=== PATIENT | male | born 1955 | race Hispanic/Latino ===

== ENCOUNTER 2019-08-16 10:35 | Observation (INO) | payer MEDICARE, BC ==
[2019-08-16] MEDS ORDERED: Aspirin Chewable 81 MG TAB ONE (10:49)
[2019-08-16 11:09] LABS: #Basophils 0.1 thou/uL (0.0-0.2); #Eosinphils 0.4 thou/uL (0.0-0.7); #Lymphocytes 1.5 thou/uL (1.20-3.40); #Monocytes 0.4 thou/uL (0.11-0.59); #Neutrophils 5.8 thou/uL (1.40-6.50); %Basophils 1.4 % (0.0-1.0); %Eosinophils 4.7 % (0.0-10.0); %Neutrophils 70.9 % (42.0-75.0); Hemoglobin 14.3 g/dL (14.0-18.0); Mean Corpuscular HGB CONC 34.3 g/dL (32.0-36.0); Mean Corpuscular Hemoglobin 30.5 pg (27.0-31.0); Mean Corpuscular Volume 88.7 fL (78.0-98.0); Mean Platelet Volume 9.2 fL (7.4-10.4); Platelet Count 189 thou/uL (130-400); White Blood Cell (WBC) Count 8.2 thou/uL (4.8-10.8)
[2019-08-16 11:21] LABS: ALT (SGPT) 24 U/L (8-55); AST (SGOT) 46 U/L (5-34); Albumin 4.2 g/dL (3.4-4.8); Alkaline Phosphatase 99 U/L (40-110); Anion Gap 12 mmol/L (10-20); BUN (Urea Nitrogen) 19 mg/dL (8.4-25.7); Bilirubin, Total 0.7 mg/dL (0.2-1.2); Calc. Creatinine Clearance 0 mL/min (70-130); Calcium 9.6 mg/dL (7.8-10.44); Carbon Dioxide 28 mmol/L (23-31); Chloride 103 mmol/L (98-107); Estimated GFR-MDRD 62; Globulin 3.3 g/dL (2.4-3.5); Glucose 247 mg/dL (80-115); Lipase 30 U/L (8-78); Potassium 4.8 mmol/L (3.5-5.1); Protein, Total 7.5 g/dL (5.8-8.1); Sodium 138 mmol/L (136-145)
--- NOTE | 2019-08-16 13:24 | RAD ---
FRONTAL RADIOGRAPH CHEST: Date: 08/16/19 COMPARISON: 03/22/14. HISTORY: Shoulder pain. FINDINGS: There is marked elevation of the right hemidiaphragm, limiting assessment of the right lung base. Hea rt and mediastinal contours are unremarkable. Left lung is clear. No pneumothorax. IMPRESSION: Marked elevation of the right hemidiaphragm. No lobar consolidation. Right base is poorly assessed. POS: OFF
--- NOTE | 2019-08-16 14:16 | CT ---
CT CERVICAL SPINE: DATE: 08/16/2019. COMPARISON: None. HISTORY: Left arm pain with numbness and tingling, radiculopathy. TECHNIQUE: Axial CT imaging at 2.5 mm intervals through the cervical spine with coronal and sagittal reformatted imaging. FINDINGS: Evaluation for central canal and/or neural foraminal stenosis is limited on routine CT. Craniocervic al junction appears intact. There is moderate degenerative change at the atlantoaxial interspace. T he C1 ring, occipital condyles, C1-2 articulation, craniocervical junction, and cervicothoracic junct ion demonstrate no acute findings. No prevertebral soft tissue swelling. No significant anterolisth esis or retrolisthesis. C2-3: Bilateral facet and uncovertebral osteophyte formation, left greater than right. Moderate lef t and mild right neural foraminal stenosis suspected. At least mild central canal stenosis. C3-4: Intervertebral disk device present. Bilateral facet and uncovertebral osteophyte formation no elida. Moderate bilateral neural foraminal stenosis, left greater than right. Mild/moderate central c anal stenosis. C4-5: Mild disk bulge. Moderate central canal stenosis. Disk space narrowing with degenerative end plate change and anterior osteophyte formation. Bilateral facet and uncovertebral osteophyte format ion with moderate/severe bilateral neural foraminal stenosis. C5-6: Disk space narrowing with degenerative end plate change and anterior osteophyte formation. Bi lateral uncovertebral osteophyte with moderate/severe bilateral neural foraminal stenosis and moderat e central canal stenosis. C6-7: Bilateral uncovertebral osteophyte formation with moderate/severe bilateral neural foraminal s tenosis. Disk space narrowing and anterior osteophyte formation with moderate central canal stenosis . C7-T1: No osseous cause of significant central canal or neural foraminal stenosis. No discrete lytic or blastic bone lesion. No acute fracture or evidence of dislocation. There is scattered atherosclerotic calcification of the carotid vasculature bilaterally. IMPRESSION: Multilevel degenerative change within the cervical spine. Evaluation for central canal and/or neural foraminal stenosis is limited on CT. No acute osseous abnormality. If radicular symptoms persist, followup cervical spine MRI is suggested. POS: OFF
[2019-08-16 14:37] LABS: Troponin I Less than 0.010 ng/mL (< 0.028)
[2019-08-16] MEDS ORDERED: Ibuprofen 800 MG TAB PO PRN (15:49)
--- NOTE | 2019-08-16 18:49 | HP ---
PRIMARY CARE PHYSICIAN: Dr. Marco Gonzalez at [facility]. CHIEF COMPLAINT: Left arm numbness and weakness times days, neck pain times days, chest tightness times day. HISTORY OF PRESENT ILLNESS: This is a 64-year-old male with past medical history of remote anterior cervical diskectomy with fusion by Dr. Vishal Suarez; hypertension; dyslipidemia; type 2 diabetes mellitus, insulin-dependent; hypothyroidism; who presents to [facility] ER for a 3 day history of left arm weakness and inability to lift arm above shoulder level associated with pain in his left posterior neck and numbness from the left thumb extending proximally to the mid forearm as well as associated complaints of chest tightness prompting concern and further ER evaluation. The patient denies any trauma or any related injury. He returned from vacation to [place] for the past 1 week and was at his baseline level. He notes history of lumbar laminectomy and notes baseline pain in the lower back. He has tried oral ibuprofen 800 mg tablets without any relief. He notes good handgrip in left hand, but notes concerns of decreased strength and chest tightness prompting further concern for evaluation. Of note, he reports fall 1-1/2 months ago with injury to right arm that has improved with passive range of motion. At baseline, he works out on a daily basis, but not has not worked on the past week due to vacation. In ER, initial blood pressure was hypertensive 188/94 with repeat blood pressure normotensive. Remainder of vitals was unremarkable. Chemistries and cardiac biomarkers and 12-lead EKG were reportedly unremarkable. The patient was administrated full dose of oral aspirin 325 mg and nitroglycerin topical ointment and then admitted for further observation for ER concerns of atypical chest pain. At bedside, the patient accompanied by spouse. He reports his symptoms have not really improved. He denies any complaints of headache, vision changes, speech difficulty, drooling, or motor or sensory symptoms on any other extremities. He notes some pain extending from elbow to the left shoulder with attempts to raise arm and thinks similar attempts may have caused chest discomfort. Most recent stress testing was in January 2013 with negative Lexiscan. PAST MEDICAL HISTORY: Hypertension; dyslipidemia; type 2 diabetes mellitus, insulin dependent; hypothyroidism; prior ACDF by Dr. Vishal Suarez. PAST SURGICAL HISTORY: ACDF 15 to 20 years [address] done [address] Dr[address] Vishal Suarez, lumbar laminectomy, vasectomy, bilateral total knee arthroplasty with revision to right side. SOCIAL HISTORY: The patient admits to social alcohol intake. He denies any tobacco use. He is baseline ambulatory, works out. He is . ALLERGIES: NONE REPORTED. MEDICATIONS: Home medications will be reviewed as per admission medication reconciliation. REVIEW OF SYSTEMS: Pertinent positives as noted in HPI. Remainder of review of systems negative. PHYSICAL EXAMINATION: VITAL SIGNS: Blood pressure initially 188/94, currently 124/83; pulse 72, respirations 18; oxygen saturation 98%, temperature 98.1. GENERAL APPEARANCE: This is an elderly male, who is awake, alert, oriented, coherent, lucid, not in obvious distress, speaking in full complete coherent sentences. HEENT: Normocephalic and atraumatic. No facial asymmetry. Pupils are equally round. Extraocular muscles are intact. NECK: Supple. There is posterior neck tenderness on the left side. CARDIOVASCULAR: S1 and S2. Regular rate and rhythm. No harsh murmurs. There is reproducible left anterior chest wall tenderness. LUNGS: Bilateral equal air entry on posterior auscultation. Nonlabored respiration. No wheezing or rales. ABDOMEN: Soft, nontender, and nondistended. EXTREMITIES: No edema, cyanosis, or deformities. MUSCULOSKELETAL: Evaluation of full passive range of motion of right upper extremity and bilateral lower extremities. Decreased passive range of motion of the left arm due to reported weakness. NEUROLOGIC: No facial asymmetry. Symmetrical smiles. Symmetrical muscle with facial expression. No sensory deficit of face noted. Decreased passive range of motion of 4+ in left arm with effort limited due to weakness. There is diminished sensation extending from the thumb to the mid forearm. Bilateral handgrip intact. No motor or sensory deficits of lower extremities are appreciated. Gait was not assessed. LABORATORY DATA: WBC 8.2, H and H of 14.3/41.7, and platelets 189. Chemistry; sodium 130, potassium 4.8, chloride 102, bicarb 28, glucose 247, BUN and creatinine 19/1.18. GFR 42. Troponin I negative. EKG reportedly negative for ischemic or infarction changes. IMAGING: One-view chest x-ray on 08/16/2019 reveals marked elevation of hemidiaphragm with no overt consolidation and poor assessment of right base. CT of cervical spine on 08/16/2019 without contrast reveals multilevel degenerative changes within cervical spine with limited evaluation for central canal and neuroforaminal stenosis. ASSESSMENT: 1. Left arm pain and weakness and weakness of unspecified etiology. The patient will be admitted as observation status, placed on telemetry monitoring. Certainly, atypical chest pain symptoms in this patient with multiple CAD risk factors and we will obtain serial cardiac biomarkers to exclude acute coronary syndrome. Furthermore, noting the patient's unexplained motor weakness in left arm with associated numbness, we will obtain MRI of brain without contrast as well as MRI cervical spine without contrast to exclude any primary central nervous system or peripheral central nervous system or radicular etiologies. Noted prior remote history of anterior cervical diskectomy with fusion. The patient has received aspirin in the ER empirically. We will consult PT and OT for further evaluation. We will monitor for pain control. Further recommendations following diagnostic imaging studies. 2. Hypertension, benign. Home medications will need to be restarted once appropriately verified. 3. Type 2 diabetes mellitus, insulin-dependent. We will continue basal insulin and monitor Accu-Cheks for euglycemia. 4. Dyslipidemia. Continue home medications once appropriately verified. 5. Hypothyroidism. Continue home medications. 6. History of anterior cervical diskectomy and fusion. The patient reports remote surgery for 15 to [address] Vishal Suarez. 7. History of lumbar laminectomy. Deep venous thrombosis prophylaxis in bilateral lower extremity SCDs and ambulation. DISPOSITION: The patient will be admitted to observation status and placed on telemetry monitoring. Anticipate less than 24-hour stay. Pending further diagnostic imaging test. Job ID: [id number] MTDD
[2019-08-16] MEDS: Acetaminophen/Codeine 30-300mg Tablet PO PRN (21:22)
[2019-08-16 22:44] LABS: Troponin I Less than 0.010 ng/mL (< 0.028)
[2019-08-17] MEDS: Acetaminophen/Codeine 30-300mg Tablet PO PRN (03:33)
[2019-08-17] MEDS ORDERED: Prevnar 13-Val Conj/PF 0.5 ML SYRINGE IM ONE (09:00)
[2019-08-17] MEDS ORDERED: FLU VACC TS2019-20(65YR UP)/PF 180 MCG/0.5 ML SYRINGE IM ONE (09:00)
--- NOTE | 2019-08-17 09:11 | PDOC.HOSPP ---
- Subjective Encounter Date: 08/17/19 Encounter Time: 12:15 Subjective: Patient with persistent left shoulder pain, numbness running down to medial hand /fingers, inability to lift traps on left side, muscle tenderness to entire shoulder and anterior superior chest wall. No other complaints. Been going on since last Saturday. - Objective Vital Signs & Weight: Vital Signs (12 hours) Temp Pulse Resp BP BP Pulse Ox 08/17/19 08:15 97.5 F L 51 L 18 165/81 H 98 08/17/19 03:06 98.6 F 55 L 16 127/75 97 08/16/19 23:48 97.7 F 57 L 16 142/76 H 98 Weight Weight 243 lb I&O: 08/16/19 08/17/19 08/18/19 06:59 06:59 06:59 Intake Total 540 Balance 540 Result Diagrams: 08/16/19 10:50 08/16/19 10:50 Radiology Reviewed by me: Yes (CT neck with typical degen changes) EKG Reviewed by me: Yes (RBB, no ST changes, stable since 2012) Hospitalist ROS - Review of Systems Constitutional: denies: fever, chills Respiratory: denies: cough Cardiovascular: reports: chest pain Gastrointestinal: denies: nausea, vomiting, abdominal pain Musculoskeletal: reports: shoulder pain Neurological: reports: weakness, numbness - Medication Medications: Active Medications Generic Name Dose Route Start Last Admin Trade Name Freq PRN Reason Stop Dose Admin Acetaminophen/Codeine Phosphate 1 tab 08/16/19 15:47 08/17/19 03:33 Tylenol #3 PO 1 tab Q6H PRN Administration Pain Ibuprofen 800 mg 08/16/19 15:49 08/16/19 18:01 Motrin PO 800 mg Q6H PRN Administration Pain - Exam General Appearance: NAD Eye: PERRL ENT: moist mucosa Heart: RRR, no murmur Respiratory: CTAB, no wheezes Respiratory - other findings: TTP upper left pectoralis and chest wall reproduces all symptoms Gastrointestinal: soft, non-tender, non-distended, normal bowel sounds Extremities: no cyanosis, no clubbing, no edema Neurological: cranial nerve grossly intact Neurological - other findings: unable to lift left shoulder, intact distal strength in elbow/wrist/fingers Musculoskeletal: no muscle wasting Psychiatric: normal affect, normal behavior, A&O x 3 Hosp A/P (1) Radicular pain of left upper extremity Code(s): M79.2 - NEURALGIA AND NEURITIS, UNSPECIFIED Status: Acute Plan: CT with degen disease, MRI brain pending, has severe disease of cervical spine at multiple levels, with some severe canal stenosis, but no clinical symptoms of significant cord compression. If MRI brain neg can d/c home and f/u neurosurg as outpatient. (2) Chest pain Code(s): R07.9 - CHEST PAIN, UNSPECIFIED Status: Acute Plan: tightness associated with movement of left shoulder, CM neg x3, EKG with RBBB unchanged from 2013, no indication ACS at this time, due to problems with left shoulder not cardiac
[2019-08-17] MEDS ORDERED: Insulin Glargine 70 UNITS in Pre-Filled Syringe 1 EACH SC SCH (10:00)
--- NOTE | 2019-08-17 12:11 | MRI ---
MRI CERVICAL SPINE WITHOUT CONTRAST: INDICATION: Neck pain with left arm weakness and numbness with history of an ACDF. TECHNIQUE: Multiplanar, multisequence MR images were obtained of the cervical spine without contrast. COMPARISON: CT cervical spine dated 08/16/2019. FINDINGS: Posterior fossa: Within normal limits. Bone marrow signal intensity: Normal. Spinal alignment: There is straightening of the normal cervical lordosis. Craniocervical junction: There are moderate degenerative changes seen at the occipital, cervical and C1-C2 articulations. Prevertebral and perivertebral soft tissues: Visualized soft tissues appear within normal limits. VERTEBRAL LEVELS C2-C3: There is prominent left-sided facet joint degenerative change. There is uncovertebral hypertro phy. There is mild right and moderate to severe left neural foraminal narrowing. C3-4: There is a broad-based disc osteophyte complex with ligamentum flavum hypertrophy inducing mode rate to severe central canal narrowing with mild ventral cord flattening. The uncovertebral hypertrophy and facet joint degenerative change at this level induces severe bilateral neural foramin al narrowing. There is a fibular strut graft seen within the C2-C3 intervertebral space. C4-5: There is a broad-based disc osteophyte complex with uncovertebral hypertrophy inducing moderat e to severe central canal narrowing with mild to moderate ventral cord effacement. No definite cord signal abnormality is evident. Uncovertebral hypertrophy and facet joint change induces severe bilat eral neural foraminal narrowing. C5-C6: There is a broad-based disc osteophyte complex with uncovertebral hypertrophy and facet joint degenerative change inducing moderate to severe central canal narrowing with mild to moderate ventral cord effacement. There is severe bilateral neural foraminal narrowing. C6-C7: There is a broad-based disc osteophyte complex with uncovertebral hypertrophy and facet joint degenerative change inducing moderate central canal narrowing with mild ventral cord effacement. There is severe bilateral neural foraminal narrowing. C7-T1: There is a broad-based bulge at C7-T1 without appreciable central canal or neural foraminal na rrowing. IMPRESSION: Severe multilevel spondylosis of the cervical spine with multilevel central canal and neural foramina l narrowing. Transcribed Date/Time: 08/17/2019 12:29 PM
--- NOTE | 2019-08-17 13:01 | MRI ---
MRI BRAIN NONCONTRAST: DATE: 08/17/2019. HISTORY: A 64-year-old male with left upper extremity weakness for a few days. COMPARISON: The prior MRI of 12/10/2006 images cannot be retrieved from synapse. No prior CTs of the brain and no other brain MRIs. FINDINGS: There is an approximately 1 x 1 x 1.5 cm intraaxial mass in the right occipital lobe, with T2-hyperin tense signal internally relative to brain parenchyma, T1-isointense signal internally relative to bra in parenchyma, with surrounding complete hemosiderin ring, and no surrounding vasogenic edema. Ventricles are normal in size and configuration. Mild chronic ischemic white matter changes of the c erebrum. No restricted diffusion to indicate any acute infarction. No acute intraaxial hemorrhage. No mass effect, midline shift, or extraaxial fluid collection. Flow voids are grossly maintained in the major arteries of the [place] at the skull base. IMPRESSION: 1. No acute intracranial findings. 2. 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 3. Mild chronic ischemic white matter changes of the cerebrum, not unusual for age 64 years. GIACOMO Rebollar POS: VIVIAN
[2019-08-17 15:49] VITALS: BP 159/82; TEMP 98.3
[2019-08-18] MEDS ORDERED: Levothyroxine 150 MCG TAB PO SCH (06:00)
[2019-08-18] MEDS ORDERED: Lisinopril 20 MG TAB PO SCH (09:00)
[2019-08-18] MEDS ORDERED: Hydrochlorothiazide 25 MG TAB PO SCH (09:00)
[2019-08-18] MEDS ORDERED: Insulin Glargine 70 UNITS in Pre-Filled Syringe 1 EACH SC SCH (09:00)
[2019-08-18] MEDS ORDERED: Atorvastatin Calcium 40 MG TAB PO SCH (09:00)
[2019-08-18] MEDS ORDERED: Non-Formulary Item 1 EACH (Insulin Glargine,Hum.Rec.Anlog [Lantus Solostar] 70 UNIT) SQ SCH (09:00)
--- NOTE | 2019-08-18 12:51 | DIS ---
DATE OF ADMISSION: 08/16/2019 DATE OF DISCHARGE: 08/17/2019 PRIMARY CARE PHYSICIAN: Marco Gonzalez. REASON FOR ADMISSION: Chest tightness along with left arm numbness and weakness. DIAGNOSES AT DISCHARGE: 1. Chest pain musculoskeletal secondary to shoulder and neck injury. 2. Radicular pain and weakness of left upper extremity with severe multilevel cervical spine disease. 3. Hypertension. 4. Hyperlipidemia. 5. Type 2 diabetes mellitus, insulin dependent. 6. Hypothyroidism. 7. Prior ACDF by Dr. Vishal Suarez. PROCEDURES: 1. CT of the cervical spine showing multilevel degenerative changes in the cervical spine. 2. MRI of the brain showing a 1.5 cm cavernous malformation in the right occipital lobe which was unchanged from previous and mild chronic ischemic white matter disease with no evidence for acute stroke. 3. MRI of the cervical spine showing severe multilevel spondylosis of the cervical spine with multilevel central canal and neural foraminal narrowing. CONSULTATIONS: ZAIDA Guzman for Dr. Conde, Neurosurgery. SUMMARY OF HOSPITAL COURSE: This is a 64-year-old male with past medical history of previous anterior cervical diskectomy with fusion, also with diabetes, hypertension, dyslipidemia. He developed a 3-day history of left arm and left shoulder pain, weakness, inability to lift the arm above the left shoulder and some numbness down into his left thumb and proximal forearm. The patient also noticed that after trying to move the shoulder around a lot, he started to have some pressure in his left chest as well. So he came to the emergency room. In the ER, he was noted to have some mild hypertension that resolved with rest, unremarkable chemistries, cardiac biomarkers and EKG. His chest was very tender to palpation and the pain was worse with movement of his left arm and shoulder when he tried to lift up his left arm. The patient was observed in the hospital. His cardiac markers remained negative during hospitalization. EKG was unchanged. I did get a CT of his neck and then MRI of the neck and brain as above. MRI ruled out an acute ischemic stroke. An MRI of the cervical spine was as above. Given the severity of the disease, I did ZAIDA Guzman for Dr. Conde. He reviewed the films and discussed with Dr. Conde and they determined that he needed to be seen, but could be done as an outpatient. They are setting up for an appointment tomorrow to be seen about his neck with radiculopathy. The patient is doing well and has had no more chest pain. He does have left upper outer chest tenderness to palpation along with tenderness to palpation of the entire shoulder. DISCHARGE MANAGEMENT: Discharged home. Follow up in Dr. Conde's office tomorrow. Activity: As tolerated. Diet: Diabetic diet. MEDICATIONS: 1. Ibuprofen 800 mg 3 times a day as needed for pain. 2. Hydrochlorothiazide 12.5 mg daily. 3. Levothyroxine 150 mcg daily. 4. Lisinopril 20 mg daily. 5. Lantus insulin 70 units subcu daily. Job ID: [id number]
== END 2019-08-17 17:28 | disposition home or self-care (01) ==
LOC: ERS 10:35 → 2SW 16:07
PROVIDERS: ADMIT Hospitalist; ATTEND Hospitalist
DX: R07.89 Other chest pain (principal); M47.22 Other spondylosis with radiculopathy, cervical region; M48.02 Spinal stenosis, cervical region; I10 Essential (primary) hypertension; E78.5 Hyperlipidemia, unspecified; E11.9 Type 2 diabetes mellitus without complications; E03.9 Hypothyroidism, unspecified; Q04.9 Congenital malformation of brain, unspecified; Z98.1 Arthrodesis status; Z79.4 Long term (current) use of insulin; Z79.899 Other long term (current) drug therapy
CPT/HCPCS: 70551; 71045; 72125; 72141; 80053; 83690; 84484 ×2; 85025; 93005; 97139 ×4; 99285; G0378 ×3; 36415; J1815

== ENCOUNTER 2019-09-04 12:11 | Outpatient (CLI) | payer MEDICARE, BC ==
--- NOTE | 2019-09-04 13:38 | MRI ---
EXAM: MRI left shoulder PROVIDED CLINICAL HISTORY: Arm weakness COMPARISON: None FINDINGS: Evaluation is extremely limited due to patient motion and inhomogeneous fat saturation. The distal conjoined tendon is not sufficiently visualized for comment regarding integrity. Partial t hickness undersurface tearing involving the distal subscapularis tendon is suspected. There is medial subluxation of the long head biceps tendon within the bicipital groove suggesting bicipital sl ing injury. The glenoid labrum and glenohumeral articular cartilage are insufficiently visualized for comment. The amount of fluid within the glenohumeral joint appears physiologic. There is physiologic subacromi al subdeltoid bursal fluid noted. Rotator cuff muscular volume appears preserved. Patchy signal alteration on fluid sensitive sequences involving the posterior deltoid muscle. IMPRESSION: 1. Limited study. 2. Suspected partial thickness undersurface tear involving subscapularis. Medial subluxation of the l kostas head biceps tendon within the bicipital groove may reflect associated bicipital sling injury. 3. Patchy signal alteration on fluid sensitive sequences involving the posterior deltoid muscle, whic h could reflect muscular strain, denervation or myositis.
--- NOTE | 2019-09-04 15:20 | MRI ---
MRI Chest W WO Con History: M [age] arm weakness Comparison: MR cervical spine August 17, 2019 Findings: Incomplete evaluation of the cervical spine in the sagittal images demonstrates multilevel spinal canal narrowing with spinal cord impingement along with myelomalacia. The brachial plexus trunks, divisions, cords, and branches abnormal signal. No solid enhancing mass. Asymmetric atrophy of the left infraspinatus muscle. There is also abnormal atrophy of the left delto id muscle and teres minor muscle. Asymmetric atrophy of the left rhomboid major and minor muscles. Impression: Asymmetric left-sided shoulder girdle musculature atrophy likely sequelae of the severe d egenerative changes of the cervical spine. No brachial plexopathy is appreciated.
== END 2019-09-04 12:12 | disposition home or self-care (01) ==
LOC: BICMRI 12:11
PROVIDERS: ATTEND Neurological Surgery
DX: R29.898 Other symptoms and signs involving the musculoskeletal system (principal); M62.512 Muscle wasting and atrophy, not elsewhere classified, left shoulder
CPT/HCPCS: 71552

== ENCOUNTER 2019-09-18 06:24 | Outpatient (CLI) | payer MEDICARE, BC ==
[2019-09-18 11:06] LABS: Anion Gap 13 mmol/L (10-20); BUN (Urea Nitrogen) 25 mg/dL (8.4-25.7); Calc. Creatinine Clearance 0 mL/min (70-130); Calcium 9.6 mg/dL (7.8-10.44); Carbon Dioxide 26 mmol/L (23-31); Chloride 104 mmol/L (98-107); Estimated GFR-MDRD 69; Glucose 138 mg/dL (80-115); Potassium 5.3 mmol/L (3.5-5.1); Sodium 138 mmol/L (136-145)
== END 2019-09-18 06:25 | disposition home or self-care (01) ==
LOC: LABBT 06:24
PROVIDERS: ATTEND Neurological Surgery
DX: Z01.812 Encounter for preprocedural laboratory examination (principal); M54.12 Radiculopathy, cervical region
CPT/HCPCS: 80048

== ENCOUNTER 2019-09-23 05:33 | Day surgery (SDC) | payer MEDICARE, BC ==
[2019-09-18 09:25] VITALS: BMI 31.6
--- NOTE | 2019-09-22 12:53 | HP ---
HISTORY OF PRESENT ILLNESS: Mr. Ariza is a 64-year-old man here today for evaluation of really acute onset of painless weakness in the left upper extremity, is admitted to the hospital for stroke, then at that time had an MRI of the cervical spine showing multilevel foraminal stenosis and moderate to severe central canal stenosis from C4-C6, though there is no obvious signal change there. 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 His right upper extremity, hand is essentially free of any weakness or pain. He hopes to discuss treatment for this including potential surgical intervention. PAST MEDICAL HISTORY: Hypercholesterolemia, chronic pain syndrome, diabetes, arthritis, hypertension, and thyroid disease. PAST SURGICAL HISTORY: Anterior cervical diskectomy, laminectomy, vasectomy, and bilateral knee replacements. CURRENT MEDICATIONS: 1. Atorvastatin. 2. Thyroxine. 3. Hydrochlorothiazide. 4. Lantus. 5. Lisinopril. ALLERGIES: NO KNOWN DRUG ALLERGIES. PHYSICAL EXAMINATION: GENERAL: He is alert and oriented x3. NEUROLOGIC: His gait is normal. No ataxia. EXTREMITIES: Upper extremity, motor exam reveals excellent strength in all movements of the right upper extremity. However, significant weakness grading 3/5 in deltoid and biceps activation. The rest of his left upper extremity motor exam is essentially normal, though minor weakness compared to the right. ASSESSMENT: Muscular weakness and cervical spinal stenosis. PLAN: Dr. Conde met with the patient, reviewed imaging, and advocated for C4-C6 ACDF. He explained to the patient the risks, benefits, and alternatives to the procedure. The patient expressed understanding and elected to move forward with surgery as discussed. I do believe the patient is mentally competent and capable of making medical decisions for himself. We will move forward with surgery as planned. Job ID: [id number]
[2019-09-23] MEDS ORDERED: Thrombin 5000 UNITS/5 ML VIAL ONE (06:11)
[2019-09-23] MEDS ORDERED: Fentanyl 100 MCG/2 ML VIAL ONE (06:43)
[2019-09-23] MEDS ORDERED: Midazolam HCl 2 mg/2 ml Vial ONE (06:44)
[2019-09-23] MEDS ORDERED: Tamsulosin HCl 0.4 MG CAP ONE (08:58)
--- NOTE | 2019-09-23 09:41 | OP ---
DATE OF PROCEDURE: 09/23/2019 FREIGHT BRAKEMAN: Merrill Odom PA-C INDICATION: Pain and weakness. DIAGNOSIS: Cervical radiculopathy. PROCEDURE PERFORMED: Reoperation of anterior cervical diskectomy and fusion, C4 through C6. ANESTHESIA: General. DESCRIPTION OF PROCEDURE: The patient was brought into the operating room, placed under general anesthesia. He was placed on table in supine position. A transverse incision was planned over the lateral aspect of the neck on the right. After prepping and draping and after an appropriate operative pause, the incision was created. The underlying platysma muscle was identified and incised. A blunt tissue plane anterior to the sternocleidomastoid muscle was used to gain access to the prevertebral space. Self-retaining retractors were placed in the wound for optimal exposure. After confirming the appropriate level with C-arm fluoroscopy, an annulotomy was performed in the C5-C6 disk space. Under distraction, the disk material as well as anterior and posterior osteophytes was removed. After completing the decompression, a 7-mm lordotic PEEK cage packed with allograft and autograft material was placed within the interbody space. We then redirected our attention to the level above at C4-C5, where again an annulotomy was performed. Under distraction with distraction pins, the disk material as well as anterior and posterior osteophytes was removed until the exiting nerve roots and thecal sac were decompressed. After completing the decompression, a 6-mm lordotic PEEK cage packed with allograft and autograft material was placed within the interbody space. An anterior cervical plate was then fashioned to the front of spine, and a total of 6 screws were placed. Midline lateral structures were then inspected and found to be free from significant trauma. The wound was irrigated. Hemostasis was maintained throughout. The wound was then closed in anatomic layers, and a pressure dressing was applied. There were no known procedural complications. Job ID: [id number]
[2019-09-23] MEDS ORDERED: HYDROcodone/Acetaminophen 5/325 mg Tablet ONE (11:36)
[2019-09-23] MEDS ORDERED: Ketorolac Tromethamine 30 MG/ML VIAL ONE (12:07)
[2019-09-23] MEDS ORDERED: Ondansetron PF 4 MG/2 ML Vial ONE (12:07)
[2019-09-23] MEDS ORDERED: Lidocaine 1% PF 5 ML VIAL ONE (12:07)
[2019-09-23] MEDS ORDERED: ePHEDrine/0.9% NaCl/PF SYRINGE 50 mg/10 ml ONE (12:07)
[2019-09-23] MEDS ORDERED: PHENYLEPHRINE-NS 100 MCG/ML 10 ML SYRINGE ONE (12:07)
[2019-09-23] MEDS ORDERED: PROPOFOL 200 MG/20 ML VIAL ONE (12:07)
[2019-09-23] MEDS ORDERED: Rocuronium Bromide 10 MG/ML (10ML VIAL) ONE (12:07)
[2019-09-23] MEDS ORDERED: Glycopyrrolate 0.2 MG/ML 5 ML SYRINGE ONE (12:07)
== END 2019-09-23 12:11 | disposition home or self-care (01) ==
LOC: SDC 05:33
PROVIDERS: ATTEND Neurological Surgery
PROC: 0RG20A0 Fusion of 2 or more Cervical Vertebral Joints with Interbody Fusion Device, Anterior Approach, Anterior Column, Open Approach (ICD-10-PCS; principal; 2019-09-23)
PROC: 0RG2070 Fusion of 2 or more Cervical Vertebral Joints with Autologous Tissue Substitute, Anterior Approach, Anterior Column, Open Approach (ICD-10-PCS; 2019-09-23)
DX: M54.12 Radiculopathy, cervical region (principal); M48.02 Spinal stenosis, cervical region; I10 Essential (primary) hypertension; E11.9 Type 2 diabetes mellitus without complications; E78.00 Pure hypercholesterolemia, unspecified; E07.9 Disorder of thyroid, unspecified; G89.4 Chronic pain syndrome; Z79.84 Long term (current) use of oral hypoglycemic drugs; Z79.899 Other long term (current) drug therapy
CPT/HCPCS: 20930; 20936; 22551; 22552; 22853 ×2; 76000; 82962; C1713 ×2; C1776; 36416; J0690; J1885; J2001; J2250; J2405; J2704; J3010

== ENCOUNTER 2020-01-15 07:41 | Outpatient (CLI) | payer MEDICARE, BC ==
--- NOTE | 2020-01-15 09:19 | MRI ---
MRI CERVICAL SPINE WITHOUT CONTRAST: INDICATION: Cervical disk displacement C5-6 level. Neck pain. Cervical surgery 09/23/2019. Continued pain and r adicular symptoms. COMPARISON: Comparison is made to MRI of cervical spine 08/17/2019. FINDINGS: Postoperative changes have occurred. Anterior fusion procedure has been performed. Anterior plate a nd screws are now seen with interbody fusion at C4, C5, and C6 levels. Degenerative disk changes are prominent at C3-4 and C6-7 with loss of disk space. 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 C3-4: Mild posterior disk bulge and spondylosis compress and flatten the cord. This is similar to t he prior study. There is bilateral foraminal stenosis. C4-5: Postop fusion changes. Mild posterior hypertrophic change remains mildly compressing the cord . Evidence of bilateral foraminal stenosis. C5-6: Post fusion. Posterior hypertrophic change compresses the cord. Bilateral foraminal stenosis . C6-7. Degenerative disk change. Posterior density and spondylitic change compress the anterior cord . Mild foraminal stenosis. Evaluation of cord is inhibited due to motion artifact; however, no significant myelomalacia apparent . IMPRESSION: Postoperative changes with anterior fusion procedure at C4-5 and C5-6 since the prior exam. Congenit ally small spinal canal. Cord compression is seen from C3 through C6 at all levels as described jess yañez. Foraminal stenosis is noted as described. POS: AGW
--- NOTE | 2020-01-15 12:25 | MRI ---
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 Low back pain for many years but s jose July and August of 2019 the patient reports that he has become more off-balance and he has noticed the has had left foot dragging and numbness in the left foot. History of lumbar back surger y many years ago. COMPARISON: MRI of the lumbar spine without contrast from [facility] dated July 01, 2019. TECHNIQUE: Routine noncontrast MRI of the lumbar spine was performed. FINDINGS: There is postprocedural change most consistent with left laminotomy at L3-4. The visualized aspects of the retroperitoneum appear within normal limits. There is loss of normal disk space and height at all lumbar intervertebral levels, but most pronounce d at L1-2, L2-3, and L4-5. The conus is seen to terminate at approximately L1. Bone marrow signal intensity demonstrates some mild Modic end plate degenerative change at all lumbar intervertebral levels but most pronounced at L1-2. At the L5-S1 level, there is a broad-based bulge with moderate right and mild left facet joint degene rative change inducing mild right lateral recess narrowing. The broad-based bulge and facet hypertro phy induce moderate right and mild left neural foraminal narrowing. This is slightly more pronounced than on the prior examination in 2008. The lateral recess narrowing is also slightly pronounced. At L4-5, there is an asymmetric to the right disk-osteophyte complex with moderate facet joint degene rative change. The disk-osteophyte complex appears slightly less pronounced than on the prior examin ation. The previously seen right paracentral protrusion is also less pronounced. The facet hypertro phy and disk-osteophyte complex induces severe bilateral neural foraminal narrowing which is stable. At L3-4, there is a residual broad-based bulge with facet hypertrophy and ligamentum flavum hypertrop hy inducing moderate to severe central canal narrowing which has progressed from the prior exam. Thi s is largely due to a worsening disk bulge and facet hypertrophy. The facet hypertrophy and disk bul ge induces moderate to severe right and severe left neural foraminal narrowing which has progressed f rom the prior exam. At L2-3, there is a broad-based disk-osteophyte complex that is asymmetric to the left with facet hyp ertrophy and ligamentum flavum hypertrophy inducing mild to moderate central canal narrowing which is slightly worse than the prior examination. There is moderate right and moderate to severe left neur al foraminal narrowing which is stable to the prior exam. At L1-2, there is an asymmetric to the left disk-osteophyte complex with a small central protrusion i nducing mild central canal narrowing. There is facet hypertrophy inducing moderate right and severe left neural foraminal narrowing which is worse from the prior exam. At T12-L1, there is facet hypertrophy and a disk bulge, but no appreciable central canal or neural fo raminal narrowing. There is a slightly prominent synovial cyst protruding from the right T12-L1 face t complex measuring 5 mm on image 3 of series 7 causing some mild effacement of the thecal sac. This is seen on image 15 of series 4 and again on image 3 of series 7. IMPRESSION: 1. Improved central canal narrowing at L4-5 when compared to the prior in 2019 but worsening central canal narrowing seen at L3-4, L2-3, and L1-2. 2. Worsening neural foraminal narrowing at multiple lumbar intervertebral levels as detailed above. 3. New anterior medial protruding synovial cyst off the right L1-2 facet complex causing mild efface ment of the thecal sac. POS: BH
== END 2020-01-15 07:42 | disposition home or self-care (01) ==
LOC: BICMRI 07:41
PROVIDERS: ATTEND Psychiatry & Neurology Neurology
DX: M50.222 Other cervical disc displacement at C5-C6 level (principal); M51.26 Other intervertebral disc displacement, lumbar region; M48.061 Spinal stenosis, lumbar region without neurogenic claudication; M48.05 Spinal stenosis, thoracolumbar region; M71.30 Other bursal cyst, unspecified site; G95.20 Unspecified cord compression; M48.02 Spinal stenosis, cervical region; Z98.1 Arthrodesis status
CPT/HCPCS: 72141; 72148

== ENCOUNTER 2020-02-15 06:54 | Outpatient (CLI) | payer MEDICARE, BC, OTHER ==
[2020-02-16 13:11] LABS: SARS-CoV-2 MS2 Positive; SARS-CoV-2 N Gene Negative; SARS-CoV-2 S Gene Negative; SARS-CoV-2 orf1ab Negative
== END 2020-02-15 06:55 | disposition home or self-care (01) ==
LOC: LABBT 06:54
PROVIDERS: ATTEND Neurological Surgery
DX: Z01.818 Encounter for other preprocedural examination (principal); Z11.59 Encounter for screening for other viral diseases; M54.16 Radiculopathy, lumbar region
CPT/HCPCS: 87635; U0003

== ENCOUNTER 2020-02-19 08:17 | Day surgery (SDC) | payer MEDICARE, BC ==
[2020-02-12 10:41] VITALS: BMI 31.6
[2020-02-19 09:17] LABS: #Basophils 0.1 thou/uL (0.0-0.2); #Eosinphils 0.3 thou/uL (0.0-0.7); #Lymphocytes 1.2 thou/uL (1.20-3.40); #Monocytes 0.4 thou/uL (0.11-0.59); #Neutrophils 4.1 thou/uL (1.40-6.50); %Basophils 1.4 % (0.0-1.0); %Eosinophils 5.4 % (0.0-10.0); %Lymphocytes 19.9 % (21.0-51.0); %Monocytes 6.1 % (0.0-10.0); %Neutrophils 67.3 % (42.0-75.0); Hemoglobin 13.1 g/dL (14.0-18.0); Mean Corpuscular HGB CONC 34.6 g/dL (32.0-36.0); Mean Corpuscular Hemoglobin 30.4 pg (27.0-31.0); Mean Platelet Volume 9.1 fL (7.4-10.4); Platelet Count 164 thou/uL (130-400); RBC Distribution Width 12.2 % (11.5-14.5); Red Blood Cell (RBC) Count 4.32 mill/uL (4.70-6.10); White Blood Cell (WBC) Count 6.1 thou/uL (4.8-10.8)
[2020-02-19 09:34] LABS: Anion Gap 9 mmol/L (10-20); BUN (Urea Nitrogen) 18 mg/dL (8.4-25.7); Calc. Creatinine Clearance 138 mL/min (70-130); Calcium 9.3 mg/dL (7.8-10.44); Carbon Dioxide 28 mmol/L (23-31); Chloride 107 mmol/L (98-107); Estimated GFR-MDRD Greater than 90; Glucose 138 mg/dL (80-115); Potassium 4.4 mmol/L (3.5-5.1); Sodium 140 mmol/L (136-145)
[2020-02-19] MEDS ORDERED: PHENYLEPHRINE-NS 100 MCG/ML 10 ML SYRINGE ONE (10:53)
[2020-02-19] MEDS ORDERED: diphenhydrAMINE 50 MG/ML VIAL ONE (10:53)
[2020-02-19] MEDS ORDERED: Ondansetron PF 4 MG/2 ML Vial ONE (10:53)
[2020-02-19] MEDS ORDERED: PROPOFOL 200 MG/20 ML VIAL ONE (10:53)
[2020-02-19] MEDS ORDERED: Dexamethasone 20 MG/5 ML VIAL ONE (10:53)
[2020-02-19] MEDS ORDERED: Lidocaine 1% PF 5 ML VIAL ONE (10:53)
[2020-02-19] MEDS ORDERED: Rocuronium Bromide 10 MG/ML (10ML VIAL) ONE (10:53)
[2020-02-19] MEDS ORDERED: EPHEDRINE 25 MG/5 ML SYRINGE ONE ×2 (10:53)
[2020-02-19] MEDS ORDERED: Glycopyrrolate 0.2 MG/ML 5 ML SYRINGE ONE (10:53)
[2020-02-19] MEDS ORDERED: Ketorolac Tromethamine 30 MG/ML VIAL ONE (10:53)
[2020-02-19] MEDS ORDERED: EPINEPHrine 1 MG/ML AMP ONE (11:20)
[2020-02-19] MEDS ORDERED: Bupivacaine PF 0.5% 30 ML VIAL ONE (11:20)
[2020-02-19] MEDS ORDERED: Fentanyl 100 MCG/2 ML VIAL ONE ×2 (11:52→14:21)
[2020-02-19] MEDS ORDERED: Midazolam HCl 2 mg/2 ml Vial ONE (11:52)
[2020-02-19] MEDS ORDERED: Morphine 4 MG/ML VIAL ONE (14:21)
[2020-02-19] MEDS ORDERED: Morphine 2 MG/ML SYRINGE ONE (14:42)
[2020-02-19] MEDS ORDERED: Tamsulosin HCl 0.4 MG CAP ONE (14:56)
--- NOTE | 2020-02-20 10:49 | EKG ---
Test Reason : PREOP Blood Pressure : / mmHG Vent. Rate : 061 BPM Atrial Rate : 061 BPM P-R Int : 278 ms QRS Dur : 156 ms QT Int : 444 ms P-R-T Axes : 072 098 055 degrees QTc Int : 446 ms Sinus rhythm with 1st degree A-V block with Premature atrial complexes Right bundle branch block Abnormal ECG When compared with ECG of 16-AUG-2019 10:45, Premature atrial complexes are now Present Confirmed by DR. Yumiko MOE ([id number]) on 02/20/2020 10:49:05 AM Referred By: CHUCKY Confirmed By:DR. Yumiko MOE
--- NOTE | 2020-02-22 12:35 | OP ---
DATE OF PROCEDURE: 02/19/2020 PROCEDURE PERFORMED: Left L4 nerve root decompression. DIAGNOSIS: Left L4 radiculopathy with pain, numbness, and foot drop. ANESTHESIA: General. DESCRIPTION OF PROCEDURE: The patient was brought into the operating room and placed under general anesthesia. He was flipped from the supine to prone position on operating room table. A linear incision was planned at the L3-L4 segment. After prepping and draping and after an appropriate preoperative pause, the incision was created. The soft tissues were swept left of midline. Self-retaining retractors were placed in the wound for optimal exposure. After confirming the appropriate level with C-arm fluoroscopy, high-speed cutting drill bit as well as 2, 3, and 4 mm Kerrisons were used to perform a laminectomy along all of L4, which extended up to the L3-L4 interface in order to decompress the L4 nerve root as it descended. The laminectomy at L4 was extended laterally to encompass the medial facet joint, so more generous foraminotomy could be performed over the exiting L4 nerve root. After decompressing the left L4 nerve root, the wound was irrigated. Hemostasis was maintained throughout. The wound was then closed in anatomic layers and a pressure dressing was applied. There were no known procedural complications. Job ID: [id number]
== END 2020-02-19 18:09 | disposition home or self-care (01) ==
LOC: SDC 08:17
PROVIDERS: ATTEND Neurological Surgery
PROC: 00NY0ZZ Release Lumbar Spinal Cord, Open Approach (ICD-10-PCS; principal; 2020-02-19)
DX: M48.061 Spinal stenosis, lumbar region without neurogenic claudication (principal); M54.16 Radiculopathy, lumbar region; M21.372 Foot drop, left foot; I10 Essential (primary) hypertension; E03.9 Hypothyroidism, unspecified; E10.9 Type 1 diabetes mellitus without complications; E78.5 Hyperlipidemia, unspecified
CPT/HCPCS: 36415; 36416; 76000; 80048; 85025; 93005; 93010; J0171; J0690; J1100; J1200; J1885; J2001; J2250; J2270; J2405; J2704; J3010; S0020

== ENCOUNTER 2021-08-21 09:51 | Emergency (ER) | payer MEDICARE, BC ==
[2021-08-21 11:18] LABS: #Eosinphils 0.2 thou/uL (0.0-0.7); #Lymphocytes 1.1 thou/uL (1.20-3.40); #Monocytes 0.5 thou/uL (0.11-0.59); #Neutrophils 4.3 thou/uL (1.40-6.50); %Basophils 0.8 % (0.0-1.0); %Eosinophils 3.6 % (0.0-10.0); %Lymphocytes 18.2 % (21.0-51.0); %Monocytes 7.6 % (0.0-10.0); %Neutrophils 69.9 % (42.0-75.0); Hemoglobin 13.8 g/dL (14.0-18.0); Mean Corpuscular HGB CONC 34.1 g/dL (32.0-36.0); Mean Corpuscular Hemoglobin 30.8 pg (27.0-31.0); Mean Corpuscular Volume 90.3 fL (78.0-98.0); Mean Platelet Volume 9.5 fL (7.4-10.4); Platelet Count 163 thou/uL (130-400); Red Blood Cell (RBC) Count 4.48 mill/uL (4.70-6.10); White Blood Cell (WBC) Count 6.2 thou/uL (4.8-10.8)
[2021-08-21] MEDS ORDERED: Meclizine HCl 25 MG TAB ONE (11:18)
[2021-08-21 11:38] LABS: ALT (SGPT) 19 U/L (8-55); AST (SGOT) 25 U/L (5-34); Albumin 3.8 g/dL (3.4-4.8); Alkaline Phosphatase 73 U/L (40-110); Anion Gap 10 mmol/L (10-20); BUN (Urea Nitrogen) 17 mg/dL (8.4-25.7); Bilirubin, Total 0.6 mg/dL (0.2-1.2); Calc. Creatinine Clearance 0 mL/min (70-130); Calcium 9.4 mg/dL (7.8-10.44); Carbon Dioxide 28 mmol/L (23-31); Chloride 105 mmol/L (98-107); Globulin 3.9 g/dL (2.4-3.5); Glucose 89 mg/dL (80-115); Potassium 4.2 mmol/L (3.5-5.1); Protein, Total 7.7 g/dL (5.8-8.1); Sodium 139 mmol/L (136-145)
== END 2021-08-21 13:29 | disposition home or self-care (01) ==
LOC: ERS 09:51
DX: R42 Dizziness and giddiness (principal); E11.9 Type 2 diabetes mellitus without complications; I10 Essential (primary) hypertension; E78.5 Hyperlipidemia, unspecified; E78.00 Pure hypercholesterolemia, unspecified; E03.9 Hypothyroidism, unspecified; Z79.4 Long term (current) use of insulin; Z79.899 Other long term (current) drug therapy
CPT/HCPCS: 71045; 80053; 84484; 85025; 93005

== ENCOUNTER 2022-09-20 09:18 | Outpatient (CLI) | payer MEDICARE, BC | END 2022-09-20 09:19 | disposition home or self-care (01) | LOC: TBSIIMAG 09:18 | PROVIDERS: ATTEND Neurological Surgery | DX: M51.16 Intervertebral disc disorders with radiculopathy, lumbar region (principal); M48.061 Spinal stenosis, lumbar region without neurogenic claudication; M25.78 Osteophyte, vertebrae; M47.26 Other spondylosis with radiculopathy, lumbar region; M48.07 Spinal stenosis, lumbosacral region; M47.817 Spondylosis without myelopathy or radiculopathy, lumbosacral region; M47.815 Spondylosis without myelopathy or radiculopathy, thoracolumbar region | CPT/HCPCS: 72110; 72158 ==

== ENCOUNTER 2022-12-21 09:44 | Outpatient (CLI) | payer MEDICARE, BC ==
[2022-12-21 11:51] LABS: Anion Gap 13 mmol/L (10-20); BUN (Urea Nitrogen) 22 mg/dL (8.4-25.7); Calc. Creatinine Clearance 0 mL/min (70-130); Calcium 9.4 mg/dL (7.8-10.44); Carbon Dioxide 24 mmol/L (23-31); Chloride 104 mmol/L (98-107); Estimated GFR 93; Glucose 108 mg/dL (80-115); Sodium 136 mmol/L (136-145)
== END 2022-12-21 09:45 | disposition home or self-care (01) ==
LOC: LABBT 09:44
PROVIDERS: ATTEND Neurological Surgery
DX: Z01.818 Encounter for other preprocedural examination (principal); M54.16 Radiculopathy, lumbar region
CPT/HCPCS: 80048; 93005; 93010

== ENCOUNTER 2022-12-26 06:11 | Observation (INO) | payer MEDICARE, BC ==
[2022-12-25 11:06] VITALS: BMI 33.5
[2022-12-26] MEDS ORDERED: Thrombin 5000 UNITS/5 ML VIAL ONE (06:25)
[2022-12-26] MEDS ORDERED: Bupivacaine HCl 0.5%/Epinephrine 1:200,000/PF 30 ml Vial ONE (06:25)
[2022-12-26] MEDS ORDERED: fentaNYL PF 100 MCG/2 ML SYRINGE ONE (07:33)
[2022-12-26] MEDS ORDERED: CEFAZOLIN 2 GM VIAL ONE (08:13)
[2022-12-26] MEDS ORDERED: Sodium Chloride 0.9% 100 ML ONE (08:13)
[2022-12-26] MEDS ORDERED: NEOSTIGMINE 3 MG/3 ML SYR 3 MG/3 ML SYRINGE ONE (08:32)
[2022-12-26] MEDS ORDERED: PHENYLEPHRINE-NS 100 MCG/ML 10 ML SYRINGE ONE (08:32)
[2022-12-26] MEDS ORDERED: ePHEDrine Sulfate 50 MG/10 ML VIAL ONE (08:32)
[2022-12-26] MEDS ORDERED: PROPOFOL 200 MG/20 ML VIAL ONE (08:32)
[2022-12-26] MEDS ORDERED: Dexamethasone 20 MG/5 ML VIAL ONE (08:32)
[2022-12-26] MEDS ORDERED: Rocuronium Bromide 10 MG/ML (10ML VIAL) ONE (08:32)
[2022-12-26] MEDS ORDERED: Ondansetron PF 4 MG/2 ML Vial ONE (08:32)
[2022-12-26] MEDS ORDERED: fentaNYL 50 mcg/mL 1 mL Vial ONE ×2 (10:07→10:19)
[2022-12-26] MEDS ORDERED: Tamsulosin HCl 0.4 MG CAP ONE (10:14)
[2022-12-26] MEDS ORDERED: Ondansetron PF 4 MG/2 ML Vial IVP PRN (15:41)
[2022-12-26] MEDS ORDERED: Acetaminophen 650 MG Suppository PR PRN (15:45)
[2022-12-26] MEDS ORDERED: Acetaminophen/Codeine 30-300mg Tablet PO PRN (15:45)
[2022-12-26] MEDS ORDERED: Morphine 2 MG/ML VIAL SLOW IVP PRN (15:45)
[2022-12-26] MEDS ORDERED: diphenhydrAMINE 25 MG CAP PO PRN (15:45)
[2022-12-26] MEDS ORDERED: Mag-Al 1200 mg/1200 mg/30 ML UDCUP PO PRN (15:45)
[2022-12-26] MEDS ORDERED: Bisacodyl 10 MG SUPP PR PRN (15:45)
[2022-12-26] MEDS ORDERED: diphenhydrAMINE 50 MG/ML VIAL IVP PRN (15:45)
[2022-12-26] MEDS ORDERED: Morphine 4 MG/ML VIAL SLOW IVP PRN (15:45)
[2022-12-26] MEDS ORDERED: Acetaminophen 325 MG TAB PO PRN (15:45)
[2022-12-26] MEDS: CEFAZOLIN 2 GM in Sodium Chloride 0.9% 100 ML IVPB SCH ×2 (16:21→23:47)
[2022-12-26] MEDS: Sodium Chloride 0.9% 1,000 ML IV SCH (16:21)
[2022-12-26] MEDS: Acetaminophen/Codeine 30-300mg Tablet PO PRN (16:22)
[2022-12-26] MEDS ORDERED: ceFAZolin (BATCH) 2 GM in Premix Bag 1 BAG IVPB SCH (22:00)
[2022-12-27] MEDS: Sodium Chloride 0.9% 1,000 ML IV SCH (04:24)
[2022-12-27] MEDS ORDERED: Tamsulosin HCl 0.4 MG CAP PO SCH (06:00)
[2022-12-27] MEDS ORDERED: IMMUNE GLOBULIN IVPB SCH ×2 (08:30→08:45)
[2022-12-27 08:36] VITALS: BP 144/84; TEMP 97.9
[2022-12-27] MEDS ORDERED: ADMIXTURE FEE IVPB SCH (08:45)
[2022-12-27] MEDS ORDERED: Levothyroxine 150 MCG TAB PO SCH (09:00)
[2022-12-27] MEDS ORDERED: Hydrochlorothiazide 25 MG TAB PO SCH (09:00)
[2022-12-27] MEDS ORDERED: Non-Formulary Item 1 EACH (Hydrochlorothiazide [Hydrochlorothiazide] 12.5 MG Tablet) PO SCH (09:00)
[2022-12-27] MEDS ORDERED: Lisinopril 20 MG TAB PO SCH (09:00)
[2022-12-27] MEDS ORDERED: Insulin Glargine 30 UNITS/0.3 ML VIAL SC SCH (09:00)
[2022-12-27] MEDS ORDERED: Amlodipine 5 MG TAB PO SCH ×2 (09:00)
[2022-12-27] MEDS ORDERED: RILUZOLE 50 MG PO SCH (09:00)
[2022-12-27] MEDS ORDERED: Non-Formulary Item 1 EACH (Insulin Glargine,Hum.Rec.Anlog [Lantus Solostar] 100 UNIT/ML P SQ SCH (09:00)
[2022-12-27] MEDS ORDERED: Atorvastatin Calcium 40 MG TAB PO SCH (09:00)
[2022-12-27] MEDS: Acetaminophen/Codeine 30-300mg Tablet PO PRN (10:25)
== END 2022-12-27 10:35 | disposition home or self-care (01) ==
LOC: SDC 06:11 → SURG A 11:17
PROVIDERS: ADMIT Neurological Surgery; ATTEND Neurological Surgery
PROC: 01NB0ZZ Release Lumbar Nerve, Open Approach (ICD-10-PCS; principal; 2022-12-26)
DX: M48.062 Spinal stenosis, lumbar region with neurogenic claudication (principal); M54.16 Radiculopathy, lumbar region; E03.9 Hypothyroidism, unspecified; E78.5 Hyperlipidemia, unspecified; I10 Essential (primary) hypertension; E11.9 Type 2 diabetes mellitus without complications; Z79.890 Hormone replacement therapy; Z79.899 Other long term (current) drug therapy
CPT/HCPCS: 63047; J3010; J1100; J1815; J2405; J2704; J3490; J7050